=== PATIENT | female | born 1985 | race Caucasian/White ===

== ENCOUNTER 2017-01-05 10:49 | Emergency (ER) | payer BC ==
[2017-01-05 10:55] VITALS: TEMP 97.7; BMI 26.1
--- NOTE | 2017-01-05 11:39 | PDOC ---
History of Present Illness <Thom Greer - Last Filed: 01/05/17 14:14> - General History Source: Patient Exam Limitations: No Limitations - History of Present Illness Initial Comments: 01/05/17 11:01 The patient is a 31-year-old woman, accompanied by mother, with a significant past medical history of hypothyroidism and anxiety/depression who presents to the emergency department via for further evaluation of anxiety. She states that she has been feeling slightly anxious/depressed for the past week. She states that after her recent ectopic , she decided to receive Depo shots for control. She reports that she has been feeling regretful of receiving this treatment, as she believes that it has affected her thyroid and other hormone levels. She reports feeling tired, lack of sleep, as she wakes up at the middle of the night and a 10 pound weight loss the past few months, although she states that she had been watching what she ate. She has an appointment scheduled for tomorrow with her [employer]. She states that this morning, she felt fine, had water and suddenly felt chest tightness and short of breath with associated arm tingles after the thought of regretting her treatment lasted approx 30 minutes before resolving. No fever, chills, generalized weakness. No chest pain, lightheadedness, dizziness, headache, visual changes No abdominal pain, nausea, vomiting, diarrhea. Allergies: No Known Drug Allergies. Past Surgical History: Ectopic Social History: Current everyday cigarette smoker (approximately 3 cigarettes/ day). No ETOH and recreational drug use. Primary Care Physician: Dr. Jeancarlos Deutsch [phone] <Carina Pretty - Last Filed: 01/05/17 14:18> - General Chief Complaint: Shortness of Breath Stated Complaint: CHEST TIGHTNESS Time Seen by Provider: 01/05/17 11:00 Past History - Past Medical History Anemia: No Asthma: No Cancer: No Cardiac Disorders: No CVA: No COPD: No CHF: No Dementia: No Diabetes: No GI Disorders: No Disorders: No HTN: No Hypercholesterolemia: No Liver Disease: No Seizures: No Thyroid Disease: Yes - Surgical History Abdominal Surgery: No Appendectomy: No Cardiac Surgery: No Cholecystectomy: No Lung Surgery: No Neurologic Surgery: No Orthopedic Surgery: No - Psycho/Social/Smoking Cessation Hx Anxiety: No Suicidal Ideation: No Smoking History: Current every day smoker Have you smoked in the past 12 months: Yes Number of Cigarettes Smoked Daily: 3 If you are a former smoker, when did you quit?: 1 YEAR AGO Information on smoking cessation initiated: Yes 'Breaking Loose' booklet given: 01/05/17 Hx Alcohol Use: No Drug/Substance Use Hx: No Substance Use Type: None Hx Substance Use Treatment: No <Thom Greer - Last Filed: 01/05/17 14:14> <Carina Pretty - Last Filed: 01/05/17 14:18> - Past Medical History Allergies/Adverse Reactions: Allergies Allergy/AdvReac Type Severity Reaction Status Date / Time No Known Allergies Allergy Verified 01/05/17 10:51 Home Medications: Ambulatory Orders Levothyroxine [Synthroid -] 75 mcg PO DAILY 08/26/16 Alprazolam [Xanax] 0.25 mg PO BID PRN #4 tablet MDD 2 01/05/17 Review of Systems - Review of Systems Able to Perform ROS?: Yes Comments:: 01/05/17 11:01 CONSTITUTIONAL: Reported: Fatigue. No reported: Fever, Chills, Diaphoresis, Generalized Weakness , Loss of Appetite HEENT: No reported: Rhinorrhea, Nasal Congestion, Throat Pain, Throat Swelling, Difficulty Swallowing, Mouth Swelling, Ear Pain, Eye Pain, Visual Changes CARDIOVASCULAR: Reported: Chest Tightness. No reported: Chest Pain, Syncope, Palpitations, Irregular Heart Rate, Lightheadedness, Peripheral Edema RESPIRATORY: Reported: Shortness of Breath. No reported: Cough, SOB with Exertion, Orthopnea , Wheezing, Stridor, Hemoptysis GASTROINTESTINAL: No reported: Abdominal pain, Abdominal Distension, Nausea, Vomiting, Diarrhea, Constipation, Melena, Hematochezia GENITOURINARY: No reported: Dysuria, Frequency, Urgency, Hesitancy, Flank Pain, Genital Pain MUSCULOSKELETAL: No reported: Myalgia, Arthralgia, Joint Swelling, Back pain, Neck Pain SKIN: No reported: Rash, Itching, Pallor HEMEATOLOGIC/IMMUNOLOGIC: No reported: Easy Bleeding, Easy Bruising, Lymphadenopathy, Frequent infections ENDOCRINE: Reported Unexplained Weight Loss (10 lbs) No reported: Unexplained Weight Gain, Unexplained Weight Loss, Heat Intolerance, Cold Intolerance NEUROLOGIC: No reported: Headache, Focal Weakness, Paresthesias, Vertigo, Lightheadedness, Unsteady Gait, Seizure, Mental Status Changes, Incontinence PSYCHIATRIC: No reported: Anxiety, Depression <Pretty,Carina - Last Filed: 01/05/17 14:18> *Physical Exam - Vital Signs Last Vital Signs Temp Pulse Resp BP Pulse Ox 97.7 F 107 H 18 152/81 100 01/05/17 10:51 01/05/17 10:51 01/05/17 10:51 01/05/17 10:51 01/05/17 10:51 <PercyOmarThom - Last Filed: 01/05/17 14:14> - Vital Signs Last Vital Signs Temp Pulse Resp BP Pulse Ox 97.7 F 107 H 18 152/81 100 01/05/17 10:51 01/05/17 10:51 01/05/17 10:51 01/05/17 10:51 01/05/17 10:51 - Physical Exam Comments: 01/05/17 11:01 GENERAL: The patient is awake, alert, and fully oriented, Nontoxic - in no acute distress. HEAD: Normocephalic, atraumatic. EYES: extraocular movements intact, sclera anicteric, conjunctiva clear. ENT: Normal voice, Moist mucous membranes. NECK: Normal range of motion, supple LUNGS: Breath sounds equal, clear to auscultation bilaterally. No wheezes, no rhonchi, no rales. HEART: Regular rate and rhythm, without murmur, rub or gallop. ABDOMEN: Soft, nontender, normoactive bowel sounds. No guarding, no rebound.No CVA tenderness EXTREMITIES: Normal range of motion, no edema. No clubbing or cyanosis. No cords, erythema, or tenderness. NEUROLOGICAL: No facial assymetry, Normal speech, PSYCH: Normal mood, normal affect. SKIN: Warm, Dry, normal turgor. <Duy Prettyine - Last Filed: 01/05/17 14:18> Heart Score/ECG Review - ECG Impressions Comment:: 01/05/17 12:50 Twelve-lead EKG was performed and reviewed by me. There is normal sinus rhythm with a normal rate. rate of 74 The axis is normal. The intervals are normal. There is normal R wave progression Nonspecific ST changes <Percy,Thom - Last Filed: 01/05/17 14:14> ED Treatment Course - LABORATORY CBC & Chemistry Diagram: 01/05/17 11:49 01/05/17 11:49 <Thom Greer - Last Filed: 01/05/17 14:14> - LABORATORY CBC & Chemistry Diagram: 01/05/17 11:49 01/05/17 11:49 <Carina Pretty - Last Filed: 01/05/17 14:18> Medical Decision Making - Medical Decision Making 01/05/17 12:49 31y F hx of ectopic , thyroid disease, presents with feeling anxious the past few days, intermittently associated with approx 30 min of sob prior to presentation without associate cough, cp, hemoptysis, leg swelling. exam unreamarakble will ck labs to r.o anemia, thyroid derangement, metabolic deragnement, ekg to r /o arrythmia will give fluids pt noted slightly tachycardic at tirage and she didnt have breakfast and only had a half cup of coffee will reassess will give pt a small dose of anxioulytic A portion of this note was documented by scribe services under my direction. I have reviewed the details of the note, within reason, and agree with the documentation with the following case summary and management plan written by me 01/05/17 14:15 labs reviewed unremarkable tsh unremarkable suspect possible anxiety will dc with pmd fu return precautions were discusse I discussed the physical exam findings, ancillary test results and final diagnoses with the patient. I answered all of the patient's questions. The patient was satisfied with the care received and felt comfortable with the discharge plan and treatment plan. The patient will call their primary care physician within 24 hours to arrange follow-up and will return to the Emergency Department with any new, persistent or worsening symptoms. <Thom Greer - Last Filed: 01/05/17 14:14> *DC/Admit/Observation/Transfer - Discharge Dispostion Admit: No <Thom Greer - Last Filed: 01/05/17 14:14> - Attestations Scribe Attestion: 01/05/17 11:01 Documentation prepared by Carina Pretyt, acting as medical office specialist for Thom Greer MD. <Carina Pretty - Last Filed: 01/05/17 14:18> Diagnosis at time of Disposition: Anxiety - Discharge Dispostion Disposition: HOME Condition at time of disposition: Improved - Prescriptions Prescriptions: Alprazolam [Xanax] 0.25 mg PO BID PRN #4 tablet MDD 2 PRN Reason: Anxiety - Referrals Referrals: Jeancarlos Deutsch MD [Primary Care Provider] - - Patient Instructions Printed Discharge Instructions: DI for Anxiety -- Adult Additional Instructions: Return to the emergency department immediately with ANY new, persistent or worsening symptoms. You MUST call and follow up with your doctor tomorrow for further evaluation of your symptoms. Results were discussed with you. Please make sure your doctor reviews the results of your emergency evaluation. If you had any xrays during your visit, it was read preliminarily by myself, a Radiologist will review it and if there are any additional findings we will call you.
[2017-01-05] MEDS ORDERED: SODIUM CHLORIDE 1,000 ML IV ONE (11:45)
[2017-01-05 12:00] LABS: BASOPHIL 1.1 % (0-2.0); EOSINOPHIL 0.2 % (0-4.5); MCH 30.8 pg (25.7-33.7); MCHC 34.7 g/dl (32.0-36.0); MEAN CELL VOLUME 88.9 fl (80-96); MEAN PLT VOLUME 8.9 fl (7.5-11.1); NEUTROPHILS 75.9 % (42.8-82.8); PLATELET COUNT 169 K/MM3 (134-434); RDW 13.7 % (11.6-15.6); WHITE BLOOD COUNT 5.7 K/mm3 (4.0-10.0)
[2017-01-05 12:30] LABS: ALBUMIN 4.3 g/dl (3.4-5.0); ALK PHOS 39 U/L (45-117); ANION GAP 9 (8-16); BILIRUBIN,TOTAL 0.8 mg/dL (0.2-1.0); CALCIUM 9.1 mg/dL (8.5-10.1); CO2 27 mmol/L (21-32); CREATININE 0.8 mg/dL (0.55-1.02); GLUCOSE,RANDOM 98 mg/dL (74-106); SGOT/AST 8 U/L (15-37); SGPT/ALT 16 U/L (12-78); TOT PROT 7.4 g/dl (6.4-8.2)
[2017-01-05] MEDS ORDERED: ALPRAZolam 0.25 MG TABLET PO ONE (12:51)
[2017-01-05 12:53] LABS: URINE APPEARANCE CLEAR; URINE BILIRUBIN NEGATIVE (NEGATIVE); URINE COLOR LTYELLOW; URINE GLUCOSE (UA) NEGATIVE (NEGATIVE); URINE KETONE TRACE (NEGATIVE); URINE NITRITE NEGATIVE (NEGATIVE); URINE PROTEIN NEGATIVE (NEGATIVE); URINE UROBILINOGEN NEGATIVE E.U./dl (0.2-1.0)
[2017-01-05 12:55] LABS: URINE BLOOD 1+ (NEGATIVE); URINE LEUK ESTERASE TRACE (NEGATIVE)
[2017-01-05 13:01] LABS: URINE BACTERIA RARE /hpf (NONE SEEN); URINE MUCUS RARE; URINE RBC 1 /hpf (0-3); URINE WBC 1 /hpf (3-5)
[2017-01-05] MEDS ORDERED: ALPRAZolam 0.25 MG TABLET ONE (13:09)
[2017-01-05 13:11] LABS: THYROID STIMULATING HORMONE 0.53 uIU/ml (0.358-3.74)
[2017-01-05 14:07] VITALS: BP 123/75; PULSE 67
--- NOTE | 2017-01-06 11:04 | EKG ---
Test Reason : Blood Pressure : / mmHG Vent. Rate : 074 BPM Atrial Rate : 074 BPM P-R Int : 118 ms QRS Dur : 090 ms QT Int : 408 ms P-R-T Axes : 061 062 044 degrees QTc Int : 452 ms NORMAL SINUS RHYTHM NONSPECIFIC ST AND T WAVE ABNORMALITY ABNORMAL ECG WHEN COMPARED WITH ECG OF 26-AUG-2016 10:15, NO SIGNIFICANT CHANGE WAS FOUND Confirmed by KAYLEIGH FITZGERALD MD ([id number]) on 01/06/2017 11:04:25 AM Referred By: Confirmed By:KAYLEIGH FITZGERALD MD
== END 2017-01-05 14:30 | disposition home or self-care (01) ==
LOC: JER 10:49
PROC: 3E0337Z Introduction of Electrolytic and Water Balance Substance into Peripheral Vein, Percutaneous Approach (ICD-10-PCS; principal; 2017-01-05)
DX: F41.9 Anxiety disorder, unspecified (principal); E03.9 Hypothyroidism, unspecified
CPT/HCPCS: 36415; 80053; 81003; 81015; 84443; 84703; 85025; 93005; 93010; 99284-25

== ENCOUNTER 2017-11-04 12:40 | Day surgery (SDC) | payer BC ==
[2017-11-03 15:45] VITALS: BMI 30.3
[2017-11-04] MEDS ORDERED: IBUPROFEN 800 MG/8 ML IJ IVPB PRN (13:48)
[2017-11-04] MEDS ORDERED: ONDANSETRON 4 MG/2 ML VIAL IVPUSH PRN (13:48)
[2017-11-04] MEDS ORDERED: oxyCODONE HCL 5 MG TABLET PO PRN (13:48)
[2017-11-04] MEDS ORDERED: LACTATED RINGERS SOLUTION 1,000 ML IV SCH (14:00)
[2017-11-04] MEDS ORDERED: PROPOFOL 20 ML ONE (14:02)
[2017-11-04] MEDS ORDERED: MIDAZOLAM HCL 2 MG/2 ML SINGLE DOSE VIAL ONE (14:02)
[2017-11-04] MEDS ORDERED: LIDOCAINE HCL/PF 2% SDV 5ML VIAL ONE (14:02)
[2017-11-04] MEDS ORDERED: DEXAMETHASONE SOD PHOSPHATE 4 MG/1 ML VIAL ONE (14:02)
--- NOTE | 2017-11-04 14:40 | HP ---
Past Medical History - Primary Care Physician PCP:: Tyson Mcgill - Admission Chief Complaint: Missed Ab at 16wk History of Present Illness: Pt had a sonogram yesterday that confirmed IUFD at 16wks. 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: Alzheimer's, CVA, Dementia, Migraine, Multiple Sclerosis, Peripheral Neuropathy, Parkinson's, Seizure, Syncope, TIA, Vertigo, Other Cardiovascular: No: AFIB, Aneurysm, Aortic Insufficiency, Aortic Stenosis, CAD, CHF, Deep Vein Thrombosis, HTN, Hyperlipdemia, MN, Mitral Insufficiency, Mitral Stenosis, Murmur, Pulmonary Hypertension, Other Pulmonary: No: Asthma, Bronchitis, Cancer, COPD, O2 Dependent, Pneumonia, Previously Intubated, Pulmonary Embolus, Pulmonary Fibrosis, Sleep Apnea, Other Gastrointestinal: No: Ascites, Cancer, Constipation, Crohn's Disease, Diverticulitis, Diverticulosis, Esophageal Varices, Gastritis, GERD, GI Bleed, Hemorrhoids, Hiatal Hernia, Inflamatory Bowel Disease, Irritable Bowel Disease, Pancreatitis, Peptic Ulcer Disease, Ulcerative Colitis, Other Hepatobiliary: No: Cirrhosis, Cholelithiasis, Cholecystitis, Choledocholithiasis , Hepatitis A, Hepatitis B, Hepatitis C, Other Renal/: No: Renal Failure, Renal Inusuff, BPH, Cancer, Hematuria, Hemodialysis , Neurogenic Bladder, Renal Calculi, UTI, Other Reproductive: Yes: Ectopic ...Para: 3 Heme/Onc: Yes: Anemia Infectious Disease: No: AIDS, C-Diff, Herpes Zoster, HIV, MRSA, STD's, Tuberculosis, VREF, Other Psych: No: Addictions, Anxiety, Bipolar, Depression, Panic, Psychosis, Schizophrenia, Other Musculoskeletal: No: Bursitis, Chronic low back pain, Hemiparesis, Hemiplegia, Osteoarthritis, Paraplegia, Other Rheumatology: No: Fibromyalgia, Gout, Lupus, Rheumatoid Arthritis, Sarcoidosis, Vasculitis, Other ENT: No: Allergic Rhinitis, Sinusitis, Other Endocrine: Yes: Hypothyroidism - Past Surgical History Hx Myomectomy: No Hx Transabdominal Cerclage: No Additional Surgical History: Right salpingectomy for ectopic , LEEP - Smoking History Smoking history: Current every day smoker Have you smoked in the past 12 months: No Aproximately how many cigarettes per day: 3 If you are a former smoker, when did you quit?: 2016 - Alcohol/Substance Use Hx Alcohol Use: Yes (SOCIAL) History of Substance Use: reports: None - Social History Usual Living Arrangement: Yes: With Spouse, With Child ADL: Independent History of Recent Travel: No Home Medications - Allergies Allergies/Adverse Reactions: Allergies Allergy/AdvReac Type Severity Reaction Status Date / Time No Known Allergies Allergy Verified 11/04/17 13:11 - Home Medications Home Medications: Ambulatory Orders Levothyroxine [Synthroid -] 75 mcg PO DAILY 08/26/16 Review of Systems Findings/Remarks: Well appearing - Review of Systems Constitutional: reports: No Symptoms Eyes: reports: No Symptoms HENT: reports: No Symptoms Neck: reports: No Symptoms Cardiovascular: reports: No Symptoms Respiratory: reports: No Symptoms Gastrointestinal: reports: No Symptoms Genitourinary: reports: No Symptoms Breasts: reports: No Symptoms Reported Musculoskeletal: reports: No Symptoms Integumentary: reports: No Symptoms Neurological: reports: No Symptoms Endocrine: reports: No Symptoms Hematology/Lymphatic: reports: No Symptoms Psychiatric: reports: No Symptoms Pain Intensity: 0 Physical Exam-SCHOOL BUS OPERATOR Vital Signs: Vital Signs Temperature 98.4 F 11/04/17 13:08 Pulse Rate 69 11/04/17 13:08 Respiratory Rate 16 11/04/17 13:08 Blood Pressure 103/63 11/04/17 13:08 O2 Sat by Pulse Oximetry (%) 98 11/04/17 13:08 Constitutional: Yes: Well Nourished, No Distress, Calm Eyes: Yes: WNL, Conjunctiva Clear HENT: Yes: WNL, Atraumatic, Normocephalic Neck: Yes: WNL, Supple, Trachea Midline Cardiovascular: Yes: WNL, Regular Rate and Rhythm Respiratory: Yes: WNL, Regular, CTA Bilaterally Gastrointestinal: Yes: WNL, Normal Bowel Sounds, Soft ...Rectal Exam: Yes: Deferred Renal/: Yes: WNL Pelvis: Yes: WNL External Genitalia: Yes: Normal Internal Exam Deferred: No Vaginal Exam: Yes: Normal Cervix: Yes: Normal Uterus: Yes: Normal, Anteverted, Enlarged (c/w 16wks) Adnexa: Normal: Left, Right Musculoskeletal: Yes: WNL Extremities: Yes: WNL Edema: No Integumentary: Yes: WNL Neurological: Yes: WNL, Alert, Oriented ...Motor Strength: WNL Psychiatric: Yes: WNL, Alert, Oriented Imaging - Results Ultrasound: Report Reviewed Assessment/Plan 32yo P3 female with IUFD/missed Ab at 16wks (US) admitted for D&E. We had a long discussion about the risks, benefits, and alternatives of surgery. I explained the risks of infection, bleeding, scarring, amenorrhea, Asherman's syndrome, infertility, perforation, need for additional surgery to treat any complications, etc. The pt declined expectant management of missed ab or prostaglandin indx. She requested to proceed with surgery.
[2017-11-04] MEDS ORDERED: ceFAZolin SODIUM 1 GM VIAL IVPB ONE (14:54)
[2017-11-04] MEDS ORDERED: OXYTOCIN 10 UNITS/ML VIAL ONE ×2 (15:00→15:01)
[2017-11-04] MEDS ORDERED: ceFAZolin SODIUM 1 GM VIAL ONE (15:02)
--- NOTE | 2017-11-04 15:27 | OP ---
Operative Note - Note: Operative Date: 11/04/17 Pre-Operative Diagnosis: Missed Ab Operation: D&E Findings: IUFD at 16 wks, normal uterus Post-Operative Diagnosis: Same as Pre-op Surgeon: Tyson Mcgill Anesthesiologist/CHART PICKER: Rose Michael Anesthesia: Spinal Specimens Removed: POC Estimated Blood Loss (mls): 100 Blood Volume Replaced (mls): 0 Fluid Volume Replaced (mls): 600 Operative Report Dictated: Yes
[2017-11-04 16:16] VITALS: TEMP 98.8
[2017-11-04] MEDS ORDERED: IBUPROFEN 600 MG TABLET (FP) PO ONE (16:38)
[2017-11-04 20:06] VITALS: BP 105/63; PULSE 64
--- NOTE | 2017-11-05 08:01 | OP ---
DATE OF OPERATION: 11/04/2017 PREOPERATIVE DIAGNOSIS: Missed at approximately 16 weeks of estimated gestational age. POSTOPERATIVE DIAGNOSIS: Missed at approximately 16 weeks of estimated gestational age. PROCEDURE: Dilatation and evacuation (D and E). SURGEON: Tyson Mcgill MD ANESTHESIOLOGIST: Rose Michael MD ANESTHESIA: Spinal and sedation. COMPLICATIONS: None. ESTIMATED BLOOD LOSS: 100 mL. INTRAVENOUS FLUIDS: 600 mL. PATHOLOGY: Products of conception. OPERATIVE DESCRIPTION: The patient was met preoperatively. Risks, benefits, and alternatives of surgery were discussed in details. All questions were answered. The patient was then brought to the OR with the IV running. She was placed on the surgical table in the sitting position. The spinal anesthesia was achieved without difficulty. The patient was then placed in a supine position. A time-out was conducted as per standard protocol. The patient was then placed in a dorsal lithotomy position using adjustable Javi stirrups. She was examined under anesthesia and noted to have an enlarged uterus consistent with a 16-week gestation. No pelvic or adnexal masses were noted. The cervix was closed with no vaginal bleeding. The patient was then prepped and draped in the usual sterile fashion. A sterile speculum was introduced inside the vagina with good visualization of the cervix. The anterior cervical lip was grasped with a single-tooth tenaculum. The cervical os was dilated using graduated cervical dilators. The entire procedure from beginning to end was conducted with a real-time ultrasound guidance. Once the cervical dilation was completed, a forceps was used to evacuate the fetus and placenta. The tissue was sent to Pathology for evaluation. A suction curette was then used to remove uterine debris and any residual tissue. The suction curettage was also performed under direct visualization with ultrasound guidance. An empty uterine cavity was noted. A sharp curette was used to assure no retained tissue or products of conception. Once this was completed, all of the instruments were removed from the patient. Good hemostasis was noted. Sponge, lap, and instrument counts were correct. The patient was returned to supine position and transferred to the recovery room in stable condition and awake. Dilshad [id number]
--- NOTE | 2017-11-06 13:02 | PATH ---
Surgical Pathology Report Patient Name: ANKIT PENNY Med. Rec. #: [id number] /Age/Gender: 1985 (Age: 32) / F Account: [id number] Location: [facility] Taken: 11/04/2017 Received: 11/05/2017 Reported: 11/06/2017 Physicians: Tyson Mcgill M.D. Specimen(s) Received A: PRODUCTS OF CONCEPTION B: PRODUCTS OF CONCEPTION Clinical History Missed Final Diagnosis A. UTERINE CONTENTS, EVACUATION: CHORIONIC VILLI AND SOMATIC TISSUE CONSISTENT WITH PRODUCTS OF CONCEPTION B. UTERINE CONTENTS, EVACUATION: FRAGMENTED IMMATURE PLACENTA WITH 3 VESSEL UMBILICAL CORD, ALONG WITH SOMATIC TISSUE WITH EXTENSIVE AUTOLYTIC CHANGES, CONSISTENT WITH PRODUCTS OF CONCEPTION. Electronically Signed Lukas Alberto M.D. Gross Description A. Received in formalin labeled "products of conception," is a 12.0 x 11.5 x 1.2 cm aggregate of ojeda-brown soft tissue fragments. Villous tissue as well as probable somatic tissue is identified. Assistant Manager Bilingual sections are submitted in one cassette. B. Received in formalin labeled "products of conception," is a 14.0 x 12.5 x 2.0 cm aggregate of a markedly macerated, torn and fragmented fetus as well as placental tissue. The hand measures 1.6 cm in length and the foot measures 1.7 cm from heel to toe. The umbilical cord measures 18.5 cm in length and averages 0.5 cm in diameter. The cut surface of the umbilical cord reveals 3 vessels. The remaining placenta is markedly fragmented. Assistant Manager Bilingual sections are submitted in 4 cassettes as follows: 1-placental membranes and umbilical cord; 4-9-djhzvpav of placenta; 4- somatic tissue. /11/05/2017 saudi/11/05/2017
== END 2017-11-04 20:07 | disposition home or self-care (01) ==
LOC: JASU-SURG 12:40
PROVIDERS: ATTEND Obstetrics & Gynecology
PROC: 10D17ZZ Extraction of Products of Conception, Retained, Via Natural or Artificial Opening (ICD-10-PCS; principal; 2017-11-04 14:00)
DX: O02.1 Missed abortion (principal); Z3A.16 16 weeks gestation of pregnancy
CPT/HCPCS: 76998-TC; 88305-TC; 94760

== ENCOUNTER 2020-12-24 09:02 | Emergency (ER) | payer BC ==
[2020-12-24 09:08] VITALS: BP 121/80; PULSE 101; TEMP 98.1; BMI 27.4
[2020-12-24] MEDS ORDERED: MECLIZINE HCL 25 MG TABLET (FP) PO ONE (10:00)
[2020-12-24] MEDS ORDERED: SODIUM CHLORIDE 1,000 ML IV STA (10:00)
[2020-12-24] MEDS ORDERED: MECLIZINE HCL 25 MG TABLET (FP) ONE (11:08)
[2020-12-24 11:42] LABS: HCG,QUALITATIVE URINE Negative
[2020-12-24 11:50] LABS: EPI CELLS 14 /uL (0-25.1); HYALINE CASTS 0 /uL (0-3.1); PH,URINE 6.5 (5.0-8.0); URINE APPEARANCE CLEAR; URINE BACTERIA 2914 /uL (0-1359); URINE BILIRUBIN NEGATIVE (NEGATIVE); URINE COLOR YELLOW; URINE GLUCOSE (UA) NEGATIVE (NEGATIVE); URINE KETONE NEGATIVE (NEGATIVE); URINE LEUK ESTERASE 1+ (NEGATIVE); URINE NITRITE POSITIVE (NEGATIVE); URINE PROTEIN NEGATIVE (NEGATIVE); URINE RBC 3 /uL (0-23.9); URINE UROBILINOGEN 0.2 mg/dL (0.2-1.0); URINE WBC 60 /uL (0-25.8)
[2020-12-24 12:02] LABS: BASO % 0.9 % (0-2.0); EOS % 0.3 % (0-4.5); LYMPH % 15.1 % (8-40); MCH 21.3 pg (25.7-33.7); MCHC 31.1 g/dl (32.0-36.0); MEAN CELL VOLUME 68.5 fl (80-96); MEAN PLT VOLUME 9.5 fl (7.5-11.1); MONO % 4.8 % (3.8-10.2); NEUT % 78.9 % (42.8-82.8); PLATELET COUNT 266 K/MM3 (134-434); RBC 4.67 M/mm3 (3.60-5.2); RDW 17.6 % (11.6-15.6); WHITE BLOOD COUNT 7.1 K/mm3 (4.0-10.0)
[2020-12-24 12:09] LABS: POTASSIUM 4.4 mmol/L (3.5-5.1)
[2020-12-24 12:11] LABS: ALBUMIN 4.1 g/dl (3.4-5.0); BLOOD UREA NITROGEN 9.2 mg/dL (7-18); CALCIUM 9.4 mg/dL (8.5-10.1)
[2020-12-24 12:15] LABS: CREATININE 0.8 mg/dL (0.55-1.3)
[2020-12-24 12:17] LABS: BILIRUBIN,TOTAL 0.5 mg/dL (0.2-1)
[2020-12-24 13:38] LABS: ANISOCYTOSIS 2+; MACROCYTOSIS 0; PLATELET ESTIMATE NORMAL
== END 2020-12-24 13:00 | disposition home or self-care (01) ==
LOC: JER 09:02
PROC: 3E0337Z Introduction of Electrolytic and Water Balance Substance into Peripheral Vein, Percutaneous Approach (ICD-10-PCS; principal; 2020-12-24)
DX: H81.12 Benign paroxysmal vertigo, left ear (principal)
CPT/HCPCS: 36415; 80053; 81003; 84703; 85025; 87086; 87186; 99284-25

== ENCOUNTER 2021-06-10 08:05 | Emergency (ER) | payer BC ==
[2021-06-10 08:14] VITALS: BMI 28.2
[2021-06-10 09:46] LABS: EPI CELLS 33 /uL (0-25.1); HYALINE CASTS 1 /uL (0-3.1); URINE APPEARANCE CLOUDY; URINE BACTERIA >9,000 /uL (0-1359); URINE BILIRUBIN NEGATIVE (NEGATIVE); URINE COLOR YELLOW; URINE GLUCOSE (UA) NEGATIVE (NEGATIVE); URINE KETONE NEGATIVE (NEGATIVE); URINE LEUK ESTERASE TRACE (NEGATIVE); URINE NITRITE NEGATIVE (NEGATIVE); URINE PROTEIN NEGATIVE (NEGATIVE); URINE RBC 12 /uL (0-23.9); URINE UROBILINOGEN 0.2 mg/dL (0.2-1.0); URINE WBC 25 /uL (0-25.8)
[2021-06-10 09:51] LABS: HCG,QUALITATIVE URINE Positive
[2021-06-10 11:33] LABS: BASO % 0.7 % (0-2.0); EOS % 0.1 % (0-4.5); HEMATOCRIT 30.9 % (32.4-45.2); HEMOGLOBIN 9.5 GM/dL (10.7-15.3); LYMPH % 13.2 % (8-40); MCH 20.6 pg (25.7-33.7); MCHC 30.9 g/dl (32.0-36.0); MEAN CELL VOLUME 66.7 fl (80-96); MEAN PLT VOLUME 9.8 fl (7.5-11.1); MONO % 5.3 % (3.8-10.2); NEUT % 80.7 % (42.8-82.8); PLATELET COUNT 243 10^3/uL (134-434); RBC 4.63 M/mm3 (3.60-5.2); RDW 19.7 % (11.6-15.6); WHITE BLOOD COUNT 6.7 K/mm3 (4.0-10.0)
[2021-06-10 11:41] LABS: INR 1.12 (0.83-1.09); PROTHROMBIN TIME (PATIENT) 13.7 SEC (9.7-13.0)
[2021-06-10 12:00] LABS: ALBUMIN 4.5 g/dl (3.4-5.0); BLOOD UREA NITROGEN 7.6 mg/dL (7-18); CALCIUM 9.2 mg/dL (8.5-10.1)
[2021-06-10 12:03] LABS: CREATININE 0.7 mg/dL (0.55-1.3)
[2021-06-10 12:06] LABS: BILIRUBIN,TOTAL 0.5 mg/dL (0.2-1); TOT PROT 8.4 g/dl (6.4-8.2)
[2021-06-10] MEDS ORDERED: METHOTREXATE SODIUM/PF 25 MG/ML VIAL IM ONE (13:48)
[2021-06-10 15:42] VITALS: BP 120/75; PULSE 68; TEMP 98.7
== END 2021-06-10 17:00 | disposition home or self-care (01) ==
LOC: JER 08:05
PROC: 3E023GC Introduction of Other Therapeutic Substance into Muscle, Percutaneous Approach (ICD-10-PCS; principal; 2021-06-10)
DX: Z32.01 Encounter for pregnancy test, result positive (principal); Z3A.01 Less than 8 weeks gestation of pregnancy
CPT/HCPCS: 36415; 76817-TC; 80053; 81003; 84702; 84703; 85025; 85610; 86850; 86900; 86901; 87086; 87186; 99284-25; J9260

== ENCOUNTER 2023-02-02 04:38 | Day surgery (SDC) | payer BC ==
[2023-01-27 12:39] VITALS: BMI 30.7
[2023-02-02] MEDS ORDERED: BUPIVACAINE HCL/PF 0.5% (5MG/ML) 10 ML VIAL ONE (07:48)
[2023-02-02] MEDS ORDERED: BUPIVACAINE HCL/PF 0.5% (5MG/ML) 10 ML VIAL IJ ONE ×2 (08:03→10:20)
[2023-02-02] MEDS ORDERED: ceFAZolin SODIUM 1 GM VIAL IVPB ONE ×2 (08:03→09:53)
[2023-02-02] MEDS ORDERED: MIDAZOLAM HCL 2 MG/2 ML SINGLE DOSE VIAL ONE (08:50)
[2023-02-02] MEDS ORDERED: PROPOFOL 20 ML ONE ×2 (08:50→09:45)
[2023-02-02] MEDS ORDERED: ROCURONIUM BROMIDE 50 MG/5 ML SYRINGE ONE (09:38)
[2023-02-02] MEDS ORDERED: ONDANSETRON 4 MG/2 ML VIAL ONE (09:52)
[2023-02-02] MEDS ORDERED: DEXAMETHASONE SOD PHOSPHATE 4 MG/1 ML VIAL ONE (09:52)
[2023-02-02] MEDS ORDERED: ceFAZolin SODIUM 1 GM VIAL ONE (09:52)
[2023-02-02] MEDS ORDERED: NEOSTIGMINE METHYLSULFATE 0.5 MG/1 ML - 10 ML MDV ONE (10:21)
[2023-02-02] MEDS ORDERED: GLYCOPYRROLATE 0.2 MG/1 ML VIAL ONE (10:24)
[2023-02-02] MEDS ORDERED: ONDANSETRON 4 MG/2 ML VIAL IVPUSH PRN (11:04)
[2023-02-02] MEDS ORDERED: ACETAMINOPHEN 1000 MG/100 ML BAG IVPB ONE (11:04)
[2023-02-02] MEDS ORDERED: oxyCODONE HCL 5 MG TABLET PO PRN (11:04)
[2023-02-02] MEDS ORDERED: LACTATED RINGERS SOLUTION 1,000 ML IV SCH (11:15)
[2023-02-02] MEDS ORDERED: oxyCODONE HCL 5 MG TABLET ONE (12:00)
[2023-02-02 12:11] VITALS: RESP 16
[2023-02-02] MEDS ORDERED: ACETAMINOPHEN INJECTION 100 ML IVPB ONE (12:12)
[2023-02-02 13:39] VITALS: BP 101/63; PULSE 63; TEMP 97.5
== END 2023-02-02 13:35 | disposition home or self-care (01) ==
LOC: JASU-SURG 04:38
PROVIDERS: ATTEND Obstetrics & Gynecology
PROC: 0UB74ZZ Excision of Bilateral Fallopian Tubes, Percutaneous Endoscopic Approach (ICD-10-PCS; principal; 2023-02-02 09:00)
DX: Z30.2 Encounter for sterilization (principal)
CPT/HCPCS: 81025; 88302-TC; 94760